=== PATIENT | female | born 1955 | race Hispanic/Latino ===

== ENCOUNTER 2022-05-05 18:22 | Emergency (ER) | payer MEDICARE, OTHER ==
[~2022-05-05] VITALS: Ht 167.6 cm; Wt 81.8 kg
[2022-05-05] MEDS ORDERED: OMEP40CA4 PO (18:36)
[2022-05-05] MEDS ORDERED: ATOR1TAB19 PO (18:36)
[2022-05-05] MEDS ORDERED: LEVAINH INH (18:36)
[2022-05-05] MEDS ORDERED: IRBE300T7 PO (18:36)
[2022-05-05] MEDS ORDERED: METF500T13 PO (18:36)
[2022-05-05] MEDS ORDERED: DILT180C78 PO (18:36)
[2022-05-05] MEDS ORDERED: SERT25TA85 PO (18:36)
[2022-05-05] MEDS ORDERED: GABA-283 PO (18:36)
[2022-05-05] MEDS ORDERED: XANA0.5T PO (18:36)
[2022-05-05] MEDS ORDERED: IPRAINH INH (18:36)
[2022-05-05] MEDS ORDERED: MORPHINE 10 MG/ML 1ML VIAL IM ONE (19:55)
[2022-05-05 21:02] VITALS: BP 158/81
[2022-05-05] MEDS ORDERED: NORCO 5/325MG TABLET (HOME DOSE PACK) PO ONE (21:05)
[2022-05-05] MEDS ORDERED: HYDR-3713 PO (21:06)
== END 2022-05-05 21:12 | disposition home or self-care (01) ==
LOC: M ED 18:22
DX: S40.011A Contusion of right shoulder, initial encounter (principal); W23.0XXA Caught, crushed, jammed, or pinched between moving objects, initial encounter; Y92.511 Restaurant or cafe as the place of occurrence of the external cause; E11.9 Type 2 diabetes mellitus without complications; I10 Essential (primary) hypertension; J44.9 Chronic obstructive pulmonary disease, unspecified; K21.9 Gastro-esophageal reflux disease without esophagitis; F32.A Depression, unspecified; Z79.84 Long term (current) use of oral hypoglycemic drugs; Z79.899 Other long term (current) drug therapy
CPT/HCPCS: 73030; 73060; 73080; 96372; 99284; J2270